=== PATIENT | female | born 1985 | race Two or more races ===

== ENCOUNTER → 2020-11-20 | Outpatient (CLI) | payer MEDICAID ==
[~2020-11-20] MED LIST: CEFAZOLIN SODIUM 1000MG/VIAL ONE; EPHEDRINE SULFATE 50MG/ML VIAL ONE; FLUT1BLS9; MORPHINE SULFATE/PF 1MG/ML 10ML AMP ONE; ONDANSETRON HCL 4MG/2ML INJ ONE; OXYTOCIN 10 UNITS/ML 1ML ONE; PHENYLEPHRINE HCL 10 MG/ML 1ML (IV VIAL) IV ONE; PREN-196; PROSOL; SUCCINYLCHOLINE CHLORIDE 200MG/10ML IV ONE
== END | disposition home or self-care (01) ==
LOC: LAB 12:15
PROVIDERS: ATTEND Obstetrics & Gynecology
DX: Z20.822 Contact with and (suspected) exposure to COVID-19 (principal)
CPT/HCPCS: C9803; U0003